=== PATIENT | male | born 1990 | race African-American/Black ===

== ENCOUNTER 2019-08-26 00:52 | Emergency (ER) | payer SELFPAY ==
[~2019-08-26] VITALS: Ht 182.9 cm; Wt 86.7 kg
[2019-08-26] MEDS ORDERED: ONDANSETRON HCL 4MG/2ML INJ IV STA (01:31)
[2019-08-26] MEDS ORDERED: KETOROLAC 30MG/ML VIAL IV STA (01:31)
[2019-08-26 01:44] LABS: BASOPHILS % 0.2 % (0.0-2.0); HEMATOCRIT. 45.1 % (42.0-52.0); HEMOGLOBIN. 15.7 g/dL (14.0-18.0); LYMPHOCYTES % 7.4 % (20.0-50.0); MEAN CORPUSCULAR HEMOGLOBIN 32.2 pg (28.0-32.0); MEAN CORPUSCULAR VOLUME 92.5 fL (80.0-94.0); MONOCYTES % 4.3 % (2.0-8.0); NEUTROPHILS % 88.1 % (40.0-76.0); PLATELET 215 x1000/uL (130-400); RED BLOOD CELL COUNT 4.88 mill/uL (4.7-6.1); RED CELL DISTRIBUTION WIDTH 13.8 % (11.6-14.6)
[2019-08-26 01:52] LABS: CHLORIDE 101 mEq/L (98-107)
[2019-08-26 01:57] LABS: ETHANOL BLOOD < 10 mg/dL
[2019-08-26 05:23] VITALS: BP 121/87
== END 2019-08-26 05:59 | disposition home or self-care (01) ==
LOC: ER 00:52
DX: R11.2 Nausea with vomiting, unspecified (principal); R10.9 Unspecified abdominal pain; R19.7 Diarrhea, unspecified; J45.909 Unspecified asthma, uncomplicated
CPT/HCPCS: 36415; 74176; 76705; 80053; 80320; 83690; 85025; 96374; 96375; 99285; J1885; J2405; G0480